=== PATIENT | female | born 1990 | race Two or more races ===

== ENCOUNTER 2016-12-04 12:09 | Emergency (ER) | payer MEDICAID ==
[~2016-12-04] VITALS: Ht 154.9 cm; Wt 76.0 kg
[2016-12-04] MEDS ORDERED: APIX5TAB PO (12:23)
[2016-12-04] MEDS ORDERED: SERT50TA PO (12:23)
[2016-12-04 18:10] LABS: CLARITY URINE CLEAR (CLEAR); COLOR URINE YELLOW (YELLOW); GLUCOSE URINE NEGATIVE (NEGATIVE); KETONES URINE NEGATIVE (NEGATIVE); LEUKOCYTE ESTERASE URINE 2+ (NEGATIVE); NITRITE URINE NEGATIVE (NEGATIVE); OCCULT BLOOD URINE 1+ (NEGATIVE); PH URINE 6.5 (4.5-8.0); PROTEIN URINE NEGATIVE (NEGATIVE); SPECIFIC GRAVITY URINE 1.022 (1.005-1.030); UROBILINOGEN URINE 0.2 E.U./dL (0.2-1.0)
[2016-12-04 20:09] VITALS: BP 103/72
== END 2016-12-04 20:12 | disposition home or self-care (01) ==
LOC: ER 13:05
DX: N39.0 Urinary tract infection, site not specified (principal); B37.49 Other urogenital candidiasis; N76.0 Acute vaginitis; F12.10 Cannabis abuse, uncomplicated; Z91.018 Allergy to other foods
CPT/HCPCS: 81001; 81025; 87210; 99284

== ENCOUNTER 2019-04-01 03:17 | Emergency (ER) | payer MEDICAID ==
[~2019-04-01] VITALS: Ht 154.9 cm; Wt 74.8 kg
[~2019-04-01 03:17] MED LIST: APIX5TAB PO; SERT50TA PO
[2019-04-01 03:25] VITALS: BP 123/88
== END 2019-04-01 11:12 | disposition left against medical advice (07) ==
LOC: ER 03:17
DX: M54.5 Low back pain (principal); Z53.21 Procedure and treatment not carried out due to patient leaving prior to being seen by health care provider